=== PATIENT | female | born 1950 | race Caucasian/White ===

== ENCOUNTER 2018-10-06 08:03 | Outpatient (CLI) | payer OTHER, SELFPAY ==
[2018-10-06 09:00] LABS: ALT 23 U/L (12-78); AST 26 U/L (15-37); Albumin 3.6 g/dL (3.4-5.0); Alkaline Phosphatase 199 U/L (46-116); BUN 78 mg/dL (7-18); Bilirubin, Total 0.5 mg/dL (0.2-1.0); Calcium 9.2 mg/dL (8.5-10.1); Chloride 101 mmol/L (98-107); Estimated GFR 12.26 (mL/min/1.73m2); Glucose 268 mg/dL (70-100); Potassium 3.8 mmol/L (3.5-5.1); Sodium 141 mmol/L (136-145); Total Protein 7.4 g/dL (6.4-8.2)
[2018-10-06 09:03] LABS: CREATININE 3.66 mg/dL (0.55-1.02)
== END 2018-10-06 08:23 ==
PROVIDERS: PCP Family Medicine; Visit Provider Internal Medicine Nephrology
DX: N18.6 End stage renal disease (principal)
CPT/HCPCS: 36415; 80053

== ENCOUNTER → 2019-06-08 09:27 | Outpatient (BNVA) | payer OTHER, SELFPAY | PROVIDERS: PCP Family Medicine; Referring Provider Family Medicine; Visit Provider Surgery | DX: N18.6 End stage renal disease (principal); E11.42 Type 2 diabetes mellitus with diabetic polyneuropathy; Z99.2 Dependence on renal dialysis; Z45.2 Encounter for adjustment and management of vascular access device; Z79.4 Long term (current) use of insulin | CPT/HCPCS: 36589; 99202 ==